=== PATIENT | female | born 1975 | race American Indian/Alaskan Native ===

== ENCOUNTER 2021-05-02 15:55 | Emergency (ER) | payer OTHER ==
[~2021-05-02] VITALS: Ht 165.1 cm; Wt 56.7 kg
== END 2021-05-02 17:40 | disposition home or self-care (01) ==
LOC: ER 15:55
DX: M79.651 Pain in right thigh (principal); R53.83 Other fatigue
CPT/HCPCS: 76882; 93971; 99283-25

== ENCOUNTER 2021-09-07 09:16 | Emergency (ER) | payer OTHER ==
[~2021-09-07] VITALS: Ht 165.1 cm; Wt 59.0 kg
[2021-09-07] MEDS ORDERED: CLINDAMYCIN HC300 MG PO (11:18)
[2021-09-07] MEDS ORDERED: DOXY100 PO (11:18)
[2021-09-07] MEDS ORDERED: PSEU120ER PO (11:18)
== END 2021-09-07 11:50 | disposition home or self-care (01) ==
LOC: ER 09:16
DX: J01.90 Acute sinusitis, unspecified (principal); Z88.0 Allergy status to penicillin; J45.909 Unspecified asthma, uncomplicated; G43.909 Migraine, unspecified, not intractable, without status migrainosus
CPT/HCPCS: 96374; 96375; 99283-25; J1100; J1200; J1885; J2765; J7030

== ENCOUNTER → 2023-03-11 | Outpatient (CLI) | payer OTHER ==
[~2023-03-11] MED LIST: CLINDAMYCIN HC300 MG PO; DOXY100 PO; PSEU120ER PO
== END | disposition home or self-care (01) ==
LOC: LAB 16:31 → LAB SHORT 16:31
DX: R11.2 Nausea with vomiting, unspecified (principal)
CPT/HCPCS: 87338

== ENCOUNTER → 2023-06-24 | Outpatient (CLI) | payer OTHER | END | disposition home or self-care (01) | LOC: LAB 19:04 → LAB SHORT 19:04 | DX: R30.0 Dysuria (principal) | CPT/HCPCS: 87077; 87086; 87186 ==